=== PATIENT | female | born 1965 | race Caucasian/White ===

== ENCOUNTER 2016-10-06 09:39 | Emergency (ER) | payer MEDICAID, OTHER ==
[~2016-10-06] VITALS: Ht 154.9 cm; Wt 59.1 kg
[~2016-10-06 09:39] MED LIST: ASPI-1061 PO; BUSP15 PO; DIPH25 PO; DOCU250C91 PO; FERR324T4 PO; FOLI1 PO; GABA-533 PO; HALO5 PO; INSLAN SQ; INSNOV SQ; METF500T4 PO; OMEP10 PO; RISP2TAB4 PO; SIMV-259 PO; SITA100 PO; TRAZ150 PO
[2016-10-06 10:04] LABS: APPEARANCE,URINE CLEAR (CLEAR); GLUCOSE, URINE (UA) >=1000 mg/dL (NEGATIVE); KETONES,URINE NEGATIVE (NEGATIVE); LEUKOCYTE ESTERASE ,URINE NEGATIVE (NEGATIVE); OCCULT BLOOD,URINE NEGATIVE (NEGATIVE); PH,URINE 6.5 (5.0-8.0); PROTEIN,URINE NEGATIVE (NEGATIVE)
[2016-10-06 10:19] LABS: RBC,URINE 0-2 /HPF (0-2); SQUAMOUS EPITHELIAL CELL,UR Moderate /LPF (None Seen); WBC,URINE 0-2 /HPF (0-5)
[2016-10-06 11:28] VITALS: BP 137/84
== END 2016-10-06 11:53 | disposition home or self-care (01) ==
LOC: EMS 09:42
DX: E11.9 Type 2 diabetes mellitus without complications (principal); R35.8 Other polyuria; F17.210 Nicotine dependence, cigarettes, uncomplicated; Z79.4 Long term (current) use of insulin; Z79.82 Long term (current) use of aspirin
CPT/HCPCS: 99283

== ENCOUNTER 2016-11-21 06:37 | Emergency (ER) | payer OTHER ==
[~2016-11-21] VITALS: Ht 160 cm; Wt 59.0 kg
[2016-11-21 06:51] LABS: GLUCOSE,POINT OF CARE 71 MG/DL (70-110)
[2016-11-21] MEDS ORDERED: IBUP100O11 PO (07:03)
[2016-11-21] MEDS ORDERED: BACL10TA PO (07:03)
[2016-11-21] MEDS ORDERED: ARIP30TA5 PO (07:03)
[2016-11-21] MEDS ORDERED: INSLAN SQ (07:03)
[2016-11-21] MEDS ORDERED: HYDR-3114 PO (07:03)
[2016-11-21] MEDS ORDERED: TRAZ-147 PO (07:03)
[2016-11-21] MEDS ORDERED: GABA-531 PO (07:03)
[2016-11-21] MEDS ORDERED: MIRT15TA6 PO (07:03)
[2016-11-21] MEDS ORDERED: PRAZ1CAP5 PO (07:03)
[2016-11-21 07:18] LABS: BASOPHILS % (AUTO) 1.1 % (0.0-2.0); HEMATOCRIT 35.2 % (36-46); HEMOGLOBIN 12.3 g/dL (12.0-16.0); LYMPHOCYTES # (AUTO) 1.1 K/uL (1.0-4.8); LYMPHOCYTES % (AUTO) 23.6 % (22.0-44.0); MEAN CORPUSCULAR HEMOGLOBIN 29.4 pg (26.0-34.0); MEAN CORPUSCULAR HGB CONC 35.1 G/dL (31.0-37.0); MEAN CORPUSCULAR VOLUME 84 fL (80-100); MONOCYTES # (AUTO) 0.3 K/uL (0.1-1.0); MONOCYTES % (AUTO) 6.1 % (2.0-9.0); NEUTROPHILS # (AUTO) 3.1 K/uL (1.8-7.7); NEUTROPHILS % (AUTO) 65.2 % (40.0-70.0); PLATELET COUNT (AUTO) 314 K/uL (150-450); RED CELL DISTRIBUTION WIDTH 13.8 % (11.5-14.5); WHITE BLOOD COUNT (AUTO) 4.7 K/uL (4.5-11.0)
[2016-11-21 07:29] LABS: ANION GAP 9 mmol/L (8-16); CARBON DIOXIDE 28 mmol/L (22-29); CHLORIDE 104 mmol/L (98-107); CREATININE 0.67 mg/dL (0.60-1.30); GLOMERULAR FILTR. RATE CALC > 60 mL/min (>60); POTASSIUM 4.2 mmol/L (3.5-5.1); SODIUM SERUM 141 mmol/L (136-145); UREA NITROGEN, BLOOD 11 mg/dL (7-18)
[2016-11-21 07:35] LABS: ALANINE AMINOTRANSFERASE 16 U/L (12-78); ALBUMIN 3.5 g/dL (3.4-5.0); ASPARTATE AMINOTRANSFERASE 13 U/L (15-37); BILIRUBIN,TOTAL 0.2 mg/dL (0.1-1.0); TOTAL PROTEIN, SERUM 6.7 g/dL (6.4-8.2)
[2016-11-21] MEDS ORDERED: SODIUM CHLORIDE 0.9% 500 ML IV ONE (08:30)
[2016-11-21 09:42] LABS: GLUCOSE,POINT OF CARE 36 MG/DL (70-110)
[2016-11-21] MEDS ORDERED: LORazepam 1 MG TABLET PO ONE (09:45)
[2016-11-21 10:52] LABS: GLUCOSE,POINT OF CARE 114 MG/DL (70-110)
[2016-11-21 12:02] LABS: GLUCOSE,POINT OF CARE 158 MG/DL (70-110)
[2016-11-21 12:31] VITALS: BP 128/69
== END 2016-11-21 12:31 | disposition home or self-care (01) ==
LOC: EMS 06:38
DX: R42 Dizziness and giddiness (principal); E11.9 Type 2 diabetes mellitus without complications; I10 Essential (primary) hypertension; F17.210 Nicotine dependence, cigarettes, uncomplicated; Z79.4 Long term (current) use of insulin
CPT/HCPCS: 36415; 71010; 80053; 82962; 84484; 85025; 96360; 99285; J7040